=== PATIENT | female | born 1955 | race Caucasian/White ===

== ENCOUNTER → 2018-03-19 | Outpatient (CLI) | payer BC, OTHER ==
[~2018-03-19] VITALS: Ht 162.6 cm; Wt 73.5 kg
[~2018-03-19] MED LIST: CALCIUM 600 +1 EAC1 PO; NASACORT10.8 ML INH; PRAVACHOL40 MG PO; PRINIVIL20 MG PO; UNICOMPLEX M TA1 TA1 PO; ZYRTEC10 M4 PO
--- NOTE | ~2018-03-19 | CATHLAB ---
[facility] [address] [place] [address] INVASIVE PROCEDURE REPORT Name: AYDE HUNT Room #: REG Kevin#: [id number] Admission: 03/19/18 Attend Phys: Alverto Reyes, Discharge: Date of : 53 Date of Service: 03/19/18 1309 Report #: [id number] THIS REPORT FOR: //name// APPROVED REPORT Study performed: 03/19/2018 07:41:37 Patient Details Patient Status: Out-Patient Room #: The patient is a 62 year-old female Event Personnel Alverto Reyes Center Consultant, [place], Kusum SCHREIBER RN, Ольга Santana RTR, MARKEL Tamayo, Yana Tam Monitor Procedures Performed Art Access - R femoral artery* Left Heart Cath w/or w/o Coronaries [id number] [facility] [address]253 Initial Mod Sed Same Phys/QHP Gr5y [id number] Hemostasis w/ Mynx Indication Chest pain Procedure Narrative The Right Groin^ was infiltrated with 1% Lidocaine subcutaneous anesthesia. A PINNACLE 6FR Sheath #[id number] sheath was inserted into the RFA 6F^. Coronary angiography was performed using coronary diagnostic catheters. The right coronary system was accessed and visualized with a JR4 catheter. The left coronary system was accessed and visualized with a JL4 catheter. The left ventricle was accessed and visualized with a STRT.PIG catheter. Left ventriculogram was performed in 30 degree projection. The patient tolerated the procedure well and there were no complications associated with the procedure. There was no hematoma. Intraoperative Conscious Sedation Sedation start time: 0850 Case end Time: 904 Fentanyl 50 mcg Versed 1 mg Fluoro Time: 1.30 minutes Dose: DAP 1819.44 cGycm2 205 mGy Contrast Type and Amount: Visipaque 90 ml Hemodynamics [facility] [address] [place] [address] INVASIVE PROCEDURE REPORT Name: AYDE HUNT [id number] Admission: 03/19/18 Attend Phys: Alverto Reyes, Discharge: Date of : 53 Date of Service: 03/19/18 1309 Report #: [id number] The aortic pressure is 172/88 mmHg with a mean of 57 mmHg. The left ventricular pressure is 175/23 mmHg with a mean of mmHg. The left ventricular end diastolic pressure is 37 mmHg. Conclusion #1 left main free of disease giving rise to LAD and circumflex #2 LAD extends to the apex with minimal irregularity there's ostial 30% diagonal branch lesion #3 circumflex OM nondominant widely patent no occlusive disease #4 large dominant right coronary artery with no occlusive disease #5 normal left ventricular size and systolic function EF 60% #6 abdominal aorta is intact no evidence of aneurysm or stenosis bilateral renal arteries and iliac system appear widely patent Recommendations and plan continue aggressive risk factor modification. There is no indication for coronary intervention. Etiology of chest pain is noncardiac. <ELECTRONICALLY SIGNED> By: Alverto Reyes MD, FACC 03/19/18 1309 1309 1309 Alverto Reyes MD, FACC /INF
[2018-03-19 07:44] LABS: HEMATOCRIT 41.2 % (37.0-47.0); HEMOGLOBIN 14.4 gm/dL (12.0-15.0); MCH 31.8 pg (26.0-34.0); MCHC 34.9 g/dL (28.0-37.0); MCV 91.2 fL (80.0-100.0); RBC 4.52 mil/uL (4.20-5.00); RDW 12.3 % (10.5-14.5); WBC 6.4 thou/uL (4.0-11.0)
[2018-03-19 07:54] LABS: POTASSIUM 4.5 mmol/L (3.5-5.1)
[2018-03-19 07:55] VITALS: BP 155/91
== END | disposition home or self-care (01) ==
LOC: CATH 07:01
PROVIDERS: Internal Medicine Cardiovascular Disease
DX: R07.9 Chest pain, unspecified (principal); E78.5 Hyperlipidemia, unspecified; I10 Essential (primary) hypertension

== ENCOUNTER → 2020-08-04 | Outpatient (CLI) | payer OTHER, MEDICARE | LOC: SJCVC 13:24 | PROVIDERS: ATTEND Internal Medicine Cardiovascular Disease | DX: R94.31 Abnormal electrocardiogram [ECG] [EKG] (principal); I25.10 Atherosclerotic heart disease of native coronary artery without angina pectoris; R00.0 Tachycardia, unspecified; I10 Essential (primary) hypertension; E78.00 Pure hypercholesterolemia, unspecified; M81.0 Age-related osteoporosis without current pathological fracture; R53.83 Other fatigue; M06.9 Rheumatoid arthritis, unspecified; Z88.5 Allergy status to narcotic agent; Z88.1 Allergy status to other antibiotic agents ==

== ENCOUNTER → 2021-03-23 | Outpatient (CLI) | payer OTHER, MEDICARE | LOC: SJCVC 13:12 | PROVIDERS: ATTEND Internal Medicine Cardiovascular Disease | DX: I25.10 Atherosclerotic heart disease of native coronary artery without angina pectoris (principal); I10 Essential (primary) hypertension; E78.00 Pure hypercholesterolemia, unspecified; M81.0 Age-related osteoporosis without current pathological fracture; M06.9 Rheumatoid arthritis, unspecified; Z72.89 Other problems related to lifestyle; Z79.899 Other long term (current) drug therapy; Z88.1 Allergy status to other antibiotic agents ==